=== PATIENT | female | born 1990 | race Caucasian/White ===

== ENCOUNTER → 2017-08-16 | Outpatient (CLI) | payer BC ==
[~2017-08-16] MED LIST: ALB0.5 INH; CYCL-332 PO; ETHI1TAB26 PO; MINOCY50PT PO; NOR5/325 PO; ONDA4TAB PO; PROAIRPT IH; ZOLM2.5 PO; [UNRECOGNIZED DRUG - OTHER]
== END ==
LOC: LAB 08:10
PROVIDERS: ATTEND Internal Medicine
DX: R53.83 Other fatigue (principal); R63.5 Abnormal weight gain
CPT/HCPCS: 36415; 82627; 83001; 83002; 84402; 84403

== ENCOUNTER → 2017-09-10 | Outpatient (CLI) | payer BC | LOC: LAB 13:17 | PROVIDERS: ATTEND Internal Medicine | DX: R53.83 Other fatigue (principal); R63.5 Abnormal weight gain | CPT/HCPCS: 82533 ==

== ENCOUNTER → 2017-09-18 | Outpatient (REF) | payer BC | LOC: ZZSENDIN 13:54 | PROVIDERS: ATTEND Internal Medicine | DX: R63.5 Abnormal weight gain (principal); R53.83 Other fatigue ==

== ENCOUNTER → 2018-01-10 | Outpatient (CLI) | payer BC ==
--- NOTE | 2018-01-10 09:08 | RADIOLOGY IMAGING REPORT ---
[place] [facility] [place] NAME: Darcie Pizarro : 1990 MR: [id number] V: [id number] EXAM DATE: ORDERING PHYSICIAN: MARYLU OLIVIER TECHNOLOGIST: Location: [facility] Patient: Darcie Pizarro : 1990 Visit/Account:[id number] Date of Sevice: 01/10/2018 Technique: CERVICAL SPINE MIN 4 VIEW HISTORY: Neck and back pain Comparison studies: None FINDINGS: There is no acute fracture. The neural foramen are patent without evidence of stenosis. T he vertebral body heights, alignment and intervertebral disc spaces are maintained in neutral, flexio n and extension. Soft tissues are unremarkable. IMPRESSION: 1. Unremarkable cervical spine radiographs Report Dictated By: Bob Hernández DO at 01/10/2018 9:04 AM Report E-Signed By: Bob Hernández DO at 01/10/2018 9:05 AM WSN:[email or web address]
== END ==
LOC: RAD 08:30
PROVIDERS: ATTEND Chiropractor
DX: M54.2 Cervicalgia (principal)
CPT/HCPCS: 72050

== ENCOUNTER → 2018-03-25 | Outpatient (CLI) | payer BC ==
[~2018-03-25] MED LIST changes: +DICL25CA6 PO; +FRO2.5PT PO; +ONDA-2 PO; +TRAM-420 PO; +[UNRECOGNIZED DRUG - CODE] PO
[2018-03-25 10:20] LABS: PLATELET COUNT, AUTOMATED 201 K/uL (150-450)
== END ==
LOC: LAB 09:55
PROVIDERS: ATTEND Obstetrics & Gynecology
DX: Z34.01 Encounter for supervision of normal first pregnancy, first trimester (principal); R82.79 Other abnormal findings on microbiological examination of urine
CPT/HCPCS: 36415; 81001; 85025; 86592; 86703; 86762; 86850; 86900; 86901; 87088; 87340

== ENCOUNTER → 2018-04-01 | Outpatient (CLI) | payer BC | LOC: LAB 11:43 | PROVIDERS: ATTEND Student in an Organized Health Care Education/Training Program | DX: Z34.91 Encounter for supervision of normal pregnancy, unspecified, first trimester (principal) | CPT/HCPCS: 87491; 87591 ==

== ENCOUNTER → 2018-06-27 | Outpatient (CLI) | payer BC ==
[~2018-06-27] MED LIST changes: +BUTA1TAB14 PO; +FLU60VIA41 IM; +FLUT16SP19 NS; +ZOLM5SPR NS
--- NOTE | 2018-06-27 14:57 | RADIOLOGY IMAGING REPORT ---
FACILITY: [facility] PATIENT NAME: Darcie Pizarro : 1990 MR: [id number] V: [id number] EXAM DATE: ORDERING PHYSICIAN: ANDREW MELARA TECHNOLOGIST: Location: [facility] Patient: Darcie Pizarro : 1990 Visit/Account:[id number] Date of Sevice: 06/27/2018 EXAMINATION: Transabdominal OB Ultrasound >14 wks with Anatomic Survey 06/27/2018 8:10 AM History: Anatomical survey COMPARISON: None FINDINGS: Intrauterine gestations: one presentation: Variable, ended transverse with head to maternal right heart rate: 147 bpm Amniotic fluid index: 16.3 cm Largest amniotic fluid pocket 4.6 cm Placenta: Fundal without previa. Placental cord insertion is not well-defined. Uterus: gravid, otherwise normal Maternal adnexa: negative Cervix: Closed and measured at 4.1 cm transvaginally. Gestational Parameters: BPD: 4.9 cm 20 weeks 5 days HC: 18.0 cm 20 weeks 3 days AC: 16.5 cm 21 weeks 4 days FL: 3.5 cm 21 weeks 0 days Average ultrasound age (AUA): 21 weeks 0 days Estimated gestational age by LMP: 20 weeks 4 days Estimated weight (EFW): 101 grams +/- 59 grams EFW for LMP percentile: 75 Anatomic Survey: Intracranial structures, nose and lips, 4-chamber heart, stomach, kidneys, urinary bladder, spine, 3- vessel cord and cord insertion are unremarkable. Two upper and two lower extremities visualized. The palate and the cardiac outflow tracts were not well seen. IMPRESSION: 1. Single live intrauterine gestation; estimated ultrasound age 21 weeks 0 days ([facility]MA 10/30/2017) which is 3 days ahead of expected clinical dates, well within normal range. 2. Unremarkable anatomic survey. Palate and outflow tracts were not well seen, nor was the herson cental cord insertion well documented. The patient is scheduled to return for addendum imaging. Report Dictated By: Juan Thayer MD at 06/27/2018 2:48 PM Report E-Signed By: Juan Thayer MD at 06/27/2018 2:52 PM WSN:[email or web address]
== END ==
LOC: RAD 08:02
PROVIDERS: ATTEND Obstetrics & Gynecology
DX: Z34.02 Encounter for supervision of normal first pregnancy, second trimester (principal); Z3A.21 21 weeks gestation of pregnancy

== ENCOUNTER → 2018-06-27 | Outpatient (CLI) | payer BC | LOC: LAB 10:34 | PROVIDERS: ATTEND Obstetrics & Gynecology | DX: R30.0 Dysuria (principal); R82.79 Other abnormal findings on microbiological examination of urine | CPT/HCPCS: 87088 ==

== ENCOUNTER → 2018-07-08 | Outpatient (CLI) | payer BC ==
--- NOTE | 2018-07-08 11:26 | RADIOLOGY IMAGING REPORT ---
FACILITY: [facility] - [place] PATIENT NAME: Darcie Pizarro : 1990 MR: [id number] V: [id number] EXAM DATE: [id number] ORDERING PHYSICIAN: ANDREW MELARA TECHNOLOGIST: Location: [facility] Patient: Darcie Pizarro : 1990 Visit/Account:[id number] Date of Sevice: 07/08/2018 Exam type: Limited OB ultrasound History: Follow-up cardiac imaging Comparison: June 26, 2018. Findings: heart rate was 147 bpm. Four cardiac chambers were demonstrated. The right and left ventricul ar outflow tracts appeared unremarkable as imaged IMPRESSION: 1. As above Report Dictated By: Danae Cornell MD at 07/08/2018 11:17 AM Report E-Signed By: Danae Cornell MD at 07/08/2018 11:20 AM WSN:[email or web address]
== END ==
LOC: RAD 08:45
PROVIDERS: ATTEND Obstetrics & Gynecology
DX: Z02.9 Encounter for administrative examinations, unspecified (principal)

== ENCOUNTER → 2018-08-20 | Outpatient (CLI) | payer BC ==
[2018-08-20 09:58] LABS: PLATELET COUNT, AUTOMATED 153 K/uL (150-450)
== END ==
LOC: LAB 08:08
PROVIDERS: ATTEND Advanced Practice Midwife
DX: Z34.03 Encounter for supervision of normal first pregnancy, third trimester (principal); Z3A.28 28 weeks gestation of pregnancy
CPT/HCPCS: 36415; 82950; 85025

== ENCOUNTER → 2018-08-26 | Outpatient (CLI) | payer BC | LOC: LAB 11:34 | PROVIDERS: ATTEND Advanced Practice Midwife | DX: R10.9 Unspecified abdominal pain (principal); R82.79 Other abnormal findings on microbiological examination of urine | CPT/HCPCS: 87088 ==

== ENCOUNTER → 2018-09-06 | Outpatient (CLI) | payer BC ==
[~2018-09-06] MED LIST changes: +DIPH0.5D12 IM
[2018-09-06 16:24] LABS: PLATELET COUNT, AUTOMATED 155 K/uL (150-450)
== END ==
LOC: LAB 15:54
PROVIDERS: ATTEND Advanced Practice Midwife
DX: O13.9 Gestational [pregnancy-induced] hypertension without significant proteinuria, unspecified trimester (principal)
CPT/HCPCS: 36415; 82040; 82247; 82310; 82374; 82435; 82565; 82570; 82947; 84075; 84132; 84155; 84156; 84295; 84450; 84460; 84520; 85025

== ENCOUNTER → 2018-09-16 | Outpatient (CLI) | payer BC ==
--- NOTE | 2018-09-16 10:12 | RADIOLOGY IMAGING REPORT ---
FACILITY: [facility] PATIENT NAME: Darcie Pizarro : 1990 MR: [id number] V: [id number] EXAM DATE: ORDERING PHYSICIAN: MOLLY HANEY TECHNOLOGIST: Location: [facility] Patient: Darcie Pizarro : 1990 Visit/Account:[id number] Date of Sevice: 09/16/2018 [facility] [place] OB LIIMITED HISTORY: Gestational hypertension COMPARISON: July 08, 2018 and June 27, 2018 TECHNIQUE: Transabdominal imaging was performed for assessment of the fetus and maternal pelvic s tructures. Transvaginal imaging was not performed. FINDINGS: Intrauterine gestations: One. presentation: Cephalic. heart rate: 136 bpm. Amniotic fluid volume: ; STEPHEN 20.26 cm; MVP 6.7 cm. Placenta: Fundal and anterior. Uterus: Gravid, otherwise grossly unremarkable where visualized. Maternal adnexa/ovaries: Not imaged. Cervix: Not imaged. Gestational Parameters: BPD: 8.62 cm, 97th percentile HC: 30.21 cm, 51st percentile AC: 28.01 cm, 46th percentile FL: 6.36 cm, 58th percentile Average ultrasound age (AUA): 33 weeks/ three days Estimated age based on LMP: 32 weeks/ one days Estimated weight (EFW): 2027 grams +/- 296 grams, 57th percentile The umbilical cord SD ratios are 3.4, 3.1, 4.7 Anatomic Survey: Anatomic survey was not performed. IMPRESSION: Single viable fetus in cephalic presentation with an estimated gestational age of 33 weeks and three days. Estimated gestational age by LMP is 32 weeks one day Estimated weight 2027 g which is at the 57th percentile Report Dictated By: Danae Cornell MD at 09/16/2018 9:48 AM Report E-Signed By: Danae Cornell MD at 09/16/2018 10:08 AM WSN:[email or web address]
== END ==
LOC: RAD 08:04
PROVIDERS: ATTEND Obstetrics & Gynecology
DX: Z02.9 Encounter for administrative examinations, unspecified (principal)

== ENCOUNTER → 2018-09-17 | Outpatient (CLI) | payer BC | LOC: LAB 16:52 | PROVIDERS: ATTEND Obstetrics & Gynecology | DX: O13.3 Gestational [pregnancy-induced] hypertension without significant proteinuria, third trimester (principal) | CPT/HCPCS: 36415; 82040; 82247; 82310; 82374; 82435; 82565; 82947; 84075; 84132; 84155; 84295; 84450; 84460; 84520; 85027 ==

== ENCOUNTER → 2018-09-24 | Outpatient (CLI) | payer BC | LOC: LAB 08:13 | PROVIDERS: ATTEND Advanced Practice Midwife | DX: O13.9 Gestational [pregnancy-induced] hypertension without significant proteinuria, unspecified trimester (principal) | CPT/HCPCS: 36415; 82040; 82247; 82310; 82374; 82435; 82565; 82947; 84075; 84132; 84155; 84295; 84450; 84460; 84520; 85027 ==

== ENCOUNTER → 2018-09-27 | Outpatient (CLI) | payer BC | LOC: LAB 09:36 | PROVIDERS: ATTEND Obstetrics & Gynecology | DX: O13.9 Gestational [pregnancy-induced] hypertension without significant proteinuria, unspecified trimester (principal) | CPT/HCPCS: 82570; 84156 ==

== ENCOUNTER → 2018-10-01 | Outpatient (CLI) | payer BC | LOC: LAB 16:39 | PROVIDERS: ATTEND Advanced Practice Midwife | DX: O14.90 Unspecified pre-eclampsia, unspecified trimester (principal) | CPT/HCPCS: 36415; 82040; 82247; 82310; 82374; 82435; 82565; 82947; 84075; 84132; 84155; 84295; 84450; 84460; 84520; 85027 ==

== ENCOUNTER → 2018-10-02 | Outpatient (CLI) | payer BC | LOC: LAB 08:12 | PROVIDERS: ATTEND Obstetrics & Gynecology | DX: Z36.85 Encounter for antenatal screening for Streptococcus B (principal) | CPT/HCPCS: 87081 ==

== ENCOUNTER → 2018-10-08 | Outpatient (CLI) | payer BC | LOC: LAB 07:58 | PROVIDERS: ATTEND Advanced Practice Midwife | DX: O14.90 Unspecified pre-eclampsia, unspecified trimester (principal) | CPT/HCPCS: 36415; 82040; 82247; 82310; 82374; 82435; 82565; 82947; 84075; 84132; 84155; 84295; 84450; 84460; 84520; 85027 ==

== ENCOUNTER → 2018-10-14 | Outpatient (CLI) | payer BC ==
[~2018-10-14] MED LIST changes: +BET6I IM ONLY
--- NOTE | 2018-10-14 12:28 | RADIOLOGY IMAGING REPORT ---
FACILITY: [facility] [place] PATIENT NAME: Darcie Pizarro : 1990 MR: [id number] V: [id number] EXAM DATE: ORDERING PHYSICIAN: MOLLY HANEY TECHNOLOGIST: [place] [facility] [place]ie Pizarro : 1990 Visit/Account:[id number] Date of Sevice: 10/14/2018 [facility] [place] OB LIIMITED HISTORY: Gestational hypertension COMPARISON: September 16, 2018 TECHNIQUE: Transabdominal imaging was performed for assessment of the fetus and maternal pelvic s tructures. Transvaginal imaging was not performed. FINDINGS: Intrauterine gestations: One. presentation: Cephalic. heart rate: 139 bpm. Amniotic fluid volume: Normal; STEPHEN 13.81 cm; MVP 5.09 cm. Placenta: Posterior. Uterus: Not evaluated. Maternal adnexa/ovaries: Not evaluated. Cervix: Not evaluated. Gestational Parameters: BPD: 9.3 cm, 89th percentile HC: 33 cm, 46th percentile AC: 32.83 cm, 67th percentile FL: 7.18 cm, 53rd percentile Average ultrasound age (AUA): 37 weeks/ two days Estimated age based on LMP: 36 weeks/ four days Estimated weight (EFW): 3080 grams +/- 450 grams consistent with the 65th percentile Anatomic Survey: Anatomic survey not performed. IMPRESSION: Single viable fetus in cephalic presentation with an estimated gestational age by measurements of 37 weeks and two days. Estimated gestational age by LMP is 36 weeks and four days Estimated weight is 3080 g consistent with the 65th percentile Report Dictated By: Danae Cornell MD at 10/14/2018 11:56 AM Report E-Signed By: Danae Cornell MD at 10/14/2018 12:23 PM WSN:[email or web address]
== END ==
LOC: US 08:04
PROVIDERS: ATTEND Obstetrics & Gynecology
DX: Z02.9 Encounter for administrative examinations, unspecified (principal)

== ENCOUNTER → 2018-10-15 | Outpatient (CLI) | payer BC | LOC: LAB 08:53 | PROVIDERS: ATTEND Obstetrics & Gynecology | DX: O14.05 Mild to moderate pre-eclampsia, complicating the puerperium (principal) | CPT/HCPCS: 36415; 82040; 82247; 82310; 82374; 82435; 82565; 82947; 84075; 84132; 84155; 84295; 84450; 84460; 84520; 85027 ==

== ENCOUNTER 2018-10-18 10:29 | Inpatient (IN) | payer BC ==
[~2018-10-18] VITALS: Ht 154.9 cm; Wt 78.9 kg
[~2018-10-18 10:29] MED LIST changes: -OXYC-865 PO; -PREN-127 PO
[2018-10-18] MEDS ORDERED: OXYTOCIN 30 UNIT/D5LR 500 ML 500 ML IV PRN ×2 (11:44)
[2018-10-18] MEDS ORDERED: FAMOTIDINE(*) 20MG/50ML PREMIX 50 ML IVPB PRN ×2 (11:44→18:05)
[2018-10-18] MEDS ORDERED: fentaNYL CITR 100 MCG/2 ML AMP IVP PRN (11:45)
[2018-10-18] MEDS ORDERED: TERBUTALINE SULF 1 MG/ML VIAL SUBQ PRN (11:45)
[2018-10-18] MEDS ORDERED: MISOPROSTOL 25 MCG CAP PV PRN (11:45)
[2018-10-18] MEDS ORDERED: LIDOCAINE 1% LOCAL 300 MG/30ML INJ PRN (11:45)
[2018-10-18] MEDS ORDERED: FLUSH 10 ML SYR IVP PRN (11:45)
[2018-10-18] MEDS ORDERED: METOCLOPRAMIDE 10 MG/2 ML SDV IVP PRN (11:45)
[2018-10-18] MEDS ORDERED: ONDANSETRON 4 MG/2 ML VIAL IVP PRN (11:45)
[2018-10-18] MEDS ORDERED: LIDOCAINE/SOD BICARB 8.4% SYR SC PRN (11:45)
[2018-10-18] MEDS ORDERED: DINOPROSTONE 10 MG INSERT PV ONE (11:45)
[2018-10-18] MEDS ORDERED: BUPIVACAINE 0.5% INJ 30ML VIAL EPI PRN ×2 (11:55→22:10)
[2018-10-18] MEDS ORDERED: LIDO/EPI 2% MPF 1:200,000 20ML EPI PRN ×2 (11:55→22:10)
[2018-10-18] MEDS ORDERED: BUPIVACAINE 0.25% MPF INJ EPI PRN ×2 (11:55→22:10)
[2018-10-18] MEDS ORDERED: LIDOCAINE/PF 2% 200MG/10ML AMP 200 MG/10 ML AMPUL EPI PRN ×2 (11:55→22:10)
[2018-10-18] MEDS ORDERED: FENTANYL/ROPIVACAINE 100 ML BAG EPI PRN ×2 (11:55→22:10)
[2018-10-18] MEDS ORDERED: fentaNYL CITR 100 MCG/2 ML AMP IT PRN ×2 (11:55→22:10)
[2018-10-18 12:25] LABS: PLATELET COUNT, AUTOMATED 116 K/uL (150-450)
[2018-10-18 13:40] VITALS: BP 127/80; Ht 154.9 cm; Wt 78.9 kg
[2018-10-18] MEDS ORDERED: PREN-127 PO (13:45)
[2018-10-18] MEDS: LR(*) 1000 ML BAG 1,000 ML IV PRN ×2 (17:46→22:25)
[2018-10-18] MEDS ORDERED: LABETALOL HCL 20 MG/4 ML SYR IVP PRN (18:00)
[2018-10-18] MEDS ORDERED: CALCIUM CARBONATE 500 MG CHEW PO PRN (18:05)
[2018-10-18] MEDS ORDERED: ACETAMINOPHEN 500 MG TAB PO PRN (18:05)
--- NOTE | 2018-10-18 18:12 | History & Physical ---
History of Present Illness Age of Patient: 28 : 1 Para or TPAL: 0 EDC per LMP: Nov 10, 2018 Estimated Gestational Age: 36.5 Chief Complaint BPP in office 01/20. Preeclampsia. History of Present Illness Pt is a 28 y/o @ 36-5/7 wga by lmp c/w 8 week sono who presented to clinic this morning for ANFS and underwent an NST. NST was deemed non reactive, pt then underwent a BPP that was 6/8 for movement. Pt gets a combined score of 6/10. She was counseled by Dr. Bah that this could indicate early stress. Pt was advised that we should move forward with IOL secondary to the 01/20. Pt was being monitored for Pre-Eclampsia. Denies any headaches or visual changes. Good movement. No vaginal bleeding. History Patient's Blood Type: AB Positive Rubella Status: Immune Group B Strep Screen: Negative Obstetrical History: @ 36-5/7 wga Preeclampsia diagnosed at 33 weeks by BP and Pr:CR of 0.5. Did receive betamethasone on 10/14 and 10/15 for FLM. [id number] negative c/w female Past Medical History: Migraines. Managed with Zomig. Allergies: Coded Allergies: azithromycin (Verified Allergy, Intermediate, HIVES, 01/22/18) VERIFIED 01/22/18 Family History: FH: thyroid condition FH: type 1 diabetes aunt uncle brother Med Rec Home Meds Active Scripts Fluticasone Prop 50 Mcg Ns (FLONASE 50 MCG NS) 16 Gm [place].susp, 2 SPRAYS NS QDAY, #1 BOT 3 Refills Prov:ANDREW BAH MD 09/27/18 Butalb/Acetaminophen/Caff 50-325-40 Mg (FIORICET 50-325-40) 1 Each Tablet, 1-2 TAB PO Q6H PRN for headache, #10 TAB 1 Refill Prov:ANDREW BAH MD 09/27/18 Zolmitriptan (ZOMIG) 5 Mg [place], 5 MG NS ONCE, #1 BOT 1 Refill 1 actuation in one nostril x 1, may repeat x 1 after 2 hours, do not exceed 10mg in 24hrs. Prov:ANDREW BAH MD 04/30/18 Reported Medications Vits W-Ca,Fe,Fa(<1MG) ( VITAMINS) 1 Each Tablet, 1 EACH PO DAILY, TAB 10/18/18 Discontinued Reported Medications Ondansetron Hcl (ONDANSETRON HCL) 4 Mg Tablet, 1 TAB PO Q12H PRN for MIGRAINE, TAB 01/22/18 Zolmitriptan (ZOLMITRIPTAN) 2.5 Mg Tablet, 1 TAB PO PRN PRN for MIGRAINE 01/22/18 Review of Systems All Systems Reviewed/Normal: Yes, Except as Noted Constitutional: No Fever, No Weight Loss, No Weight Gain, No Chills, No Night Sweats, No Other Neurological: No Syncope, No Confusion, No Weakness, No Dizziness, No Slurred Speech, No Other Eyes: No Vision Change, No Loss of Vision, No Photophobia, No Other ENT: No Hearing Loss, No Sinus Congestion, No Sore Throat, No Ear Ache, No Tinnitus, No Other Cardiovascular: No Chest Pain, No Palpitations, No Orthostatic Hypotension, No Other Respiratory: No Shortness of Breath, No Cough, No Wheezing, No Other Gastrointestinal: No Nausea, No Vomiting, No Diarrhea, No Dysphagia, No Constipation, No Early Satiety, No Hematemesis, No Hematochezia, No Melena, No Abdominal Pain, No Other Genitourinary: No Dysuria, No Hematuria, No Urinary Incontinence, No Other Musculoskeletal: No Pain, No Sprain, No Strain, No Impaired Mobility, No Other Psychiatric: No Depression, No Anxiety, No Other Exam General Exam Vital Signs Vital Signs Date Time Temp Pulse Resp B/P (MAP) Pulse Ox O2 Delivery O2 Flow Rate FiO2 10/18/18 13:40 97.7 77 18 127/80 (96) 92 Room Air General Apperance: Alert/Awake/No Acute Distress Neuro: No Gross deficits Eyes: Normal Extraocular Movement & Vison ENT: Normal Cardiovascular: Regular Rate and Rhythm Respiratory: No Respiratory Distress, Clear to Auscultation Abdomen: Soft, Non-Tender, Non-Distended, Gravid - Non-Tender : Normal Musculoskeletal: No Weakness/Pain Extremities: No Cyanosis,Clubbing or Edema Integumentary: Skin Intact without Lesions or Rash Psychological: Alert & Oriented X3, Appropriate Mood & Affect Cervical Dialation: 1 Cervical Effacement (%): 50 Cervical Consistency: Soft Cervical Position: Mid Station: -2 Presentation: Vertex Uterine Contractions(Q min): 4 Uterine Contraction Strength: Moderate UC Resting Tone: Soft Fetus Feeling Movement?: Yes Heart Tones: 140 Heart Tone Variabilty: Moderate FHT Accelerations: 15X15 FHT Decelerations: None FHT Category: I Medical Decision Making Data Points Result Diagram: 10/18/18 1214 10/18/18 1214 Pre-Admit Course Medical Record Review: Yes VTE Prophylasis: Adult Deep Vein Thrombosis/Pulmonary: No 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 Pt also has the diagnosis of Pre-Eclampsia with out severe features. No severe range BP's while in the hospital today. Will treat BP if necessary. If BP is treated will need to start magnesium sulfate for seizure prophylaxis. Pt is s/p Cytotec 25 mcg with minimal cervical change. Pt is marian regularly. Cervical ripening balloon (Cook's) placed with 80 cc of saline in vaginal and Uterine balloons. Pt to have oxytocin titrated to 14 mU/min, starting at 2 mU/min and increasing by 2 every 20 minutes. Tension applied to balloon hourly. Plan amniotomy once CRB is removed. (2) Pre-eclampsia affecting , antepartum VIK PIÑA DO Oct 18, 2018 18:12
[2018-10-18] MEDS ORDERED: ePHEDrine 25 MG/5 ML DISP.SYR IVP ONE (22:09)
[2018-10-18] MEDS ORDERED: ONDANSETRON 4 MG/2 ML VIAL ONE (22:10)
--- NOTE | 2018-10-18 22:18 | Labor Progress Note ---
Labor Subjective Progress Notes Subjective Beginning to get uncomfortable with contractions. Pt desires to get epidural with ROM. Feeling Movement?: Yes Labor Pain: Moderate Neurological: No Headache, No Other Eyes: No Visual Disturbances Labor Objective Vital Signs Vital Signs Date Time Temp Pulse Resp B/P (MAP) Pulse Ox O2 Delivery O2 Flow Rate FiO2 10/18/18 13:40 97.7 77 18 127/80 (96) 92 Room Air Vaginal Discharge/Fluid?: Clear Fluid (with amniotomy) Cervical Dialation: 4 Cervical Effacement (%): 75 Cervical Consistency: Soft Cervical Position: Mid Station: -2 Presentation: Vertex Uterine Contractions(Q min): 3 Uterine Contraction Strength: Moderate UC Resting Tone: Soft Other Result Diagram: 10/18/18 1214 10/18/18 1214 Assessment and Plan 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 Pt did have HR deceleration lasting approximately 3 minutes. FSE was placed and amniotomy performed with FHR back to baseline with placement. Pt to get epidural. No severe range blood pressures at this time. Continue to monitor patient. VIK PIÑA DO Oct 18, 2018 22:18
--- NOTE | 2018-10-18 22:58 | Anesthesia OB Pre-Anes Eval ---
History of Present Illness Anesthesia Start Date: Oct 18, 2018 Anesthesia Start Time: 22:10 OB Anesthesia Diagnosis: induction - medical EDC: Nov 10, 2018 : 1 Para: 0 Vital Signs: Vital Signs 10/18/18 13:40 Temp 97.7 Pulse 77 Resp 18 B/P (MAP) 127/80 (96) Pulse Ox 92 O2 Delivery Room Air Pain Ratin Heart Tones: 131 Result Diagram: 10/18/18 1214 10/18/18 1214 Height (Inches): 61.00 Weight (Pounds): 174 BMI (kg/m2): 32.90 Past Medical History Medical History: no pertinent history Surgical History: no surgical history Attended Childbirth Classes?: No Hx Anesthesia Reactions: No Hx Family Anesthesia Reaction: No Current Medications: pitocin Home Meds Active Scripts Fluticasone Prop 50 Mcg Ns (FLONASE 50 MCG NS) 16 Gm [place].susp, 2 SPRAYS NS QDAY, #1 BOT 3 Refills Prov:ANDREW MELARA MD 09/27/18 Butalb/Acetaminophen/Caff 50-325-40 Mg (FIORICET 50-325-40) 1 Each Tablet, 1-2 TAB PO Q6H PRN for headache, #10 TAB 1 Refill Prov:ANDREW MELARA MD 09/27/18 Zolmitriptan (ZOMIG) 5 Mg [place], 5 MG NS ONCE, #1 BOT 1 Refill 1 actuation in one nostril x 1, may repeat x 1 after 2 hours, do not exceed 10mg in 24hrs. Prov:ANDREW MELARA MD 04/30/18 Reported Medications Vits W-Ca,Fe,Fa(<1MG) ( VITAMINS) 1 Each Tablet, 1 EACH PO DAILY, TAB 10/18/18 Discontinued Reported Medications Ondansetron Hcl (ONDANSETRON HCL) 4 Mg Tablet, 1 TAB PO Q12H PRN for MIGRAINE, TAB 01/22/18 Zolmitriptan (ZOLMITRIPTAN) 2.5 Mg Tablet, 1 TAB PO PRN PRN for MIGRAINE 01/22/18 Allergies: Coded Allergies: azithromycin (Verified Allergy, Intermediate, HIVES, 01/22/18) VERIFIED 01/22/18 Anesthesia OB ROS Neurological: migraines/headaches ENT: Denies Tooth caps, Denies Loose teeth, Denies Chipped teeth, Denies Dentures, Denies Bridges, Denies Retainers, Denies Veneers, Denies Implants, Denies Tongue ring, Denies Other Pulmonary: No asthma, No smoker (pks/day/yrs), No other Airway Class: ll Cardiovascular ROS: No edema, No arrhythmia, No other GI ROS: clear liquids Last Solids Date: Oct 18, 2018 Last Solids Time: 07:30 ROS: No Herpes, No STD(s), No Liver Disease, No Renal Disease, No Other Endocrine ROS: No diabetes, No gestational diabetes, No thyroid disorder, No other Musculoskeletal ROS: No low back pain, No low back injury, No scoliosis, No other ASA Classification: 2 Assessment and Plan Anesthesia Plan: DENNY PATTERSON CRNA Oct 18, 2018 22:58
--- NOTE | 2018-10-18 23:03 | Procedure Note ---
Anesthetic Placement Note Anesthesia Plan: CSE Permit for Anesthesia Signed: Yes Anesthesia Technique: Patient Sitting Anesthesia Prep: Chlorhexidine Interspace: L 3-4 Local Anesthetic: 1% Lidocaine Amount Local - cc's: 3 Anesthesia Needle: 17g Touhy/Schliff Anesthesia Attempts: 1 Loss of Resistance: Normal Saline Depth of BROOKE (cm): 5 Epidural Needle Placement: No CSF, No Blood, No Parasthesia Intrathecal Needle: 27 Gauge Pencan Cerebral Spinal Fluid: Yes, Clear Catheter Insertion (cm): 4 (9 cm@skin) Catheter Type: Stallings - Spring Wound Epidural Dressing: Tegaderm, Tape Anesthesia Tray: Lot Number ([id number]), Expiration Date (04/01), Reference Number ([id number]) Anesthesia Medications: Intrathecal Dose: mcg Fentanyl (10), mg Marcaine MPF (2.5), Time (2228) Epidural Test Dose: 1.5 Lido/Epi (1:200,000), Dose - mL (3), Time (2229), Negative Epidural Infusion: 0.2% Ropivicaine, With Fentanyl 2mcg/ml, Start Time: (2243) Epidural Pump Setting: Bolus Dose - mL (8), Lockout - Minutes (20), Maintenance Rate - mL/hr (6), Maximum per Hour - mL (30) Complications: None DENNY GARCIA CRNA Oct 18, 2018 23:03
[2018-10-19] VITALS (9 sets, daily range): BP systolic 100–129; BP diastolic 65–83
[2018-10-19] MEDS ORDERED: ACETA/BUTAL/CAFF 325/50/40 TAB PO PRN ×2 (02:15→02:20)
[2018-10-19] MEDS: LR(*) 1000 ML BAG 1,000 ML IV PRN ×2 (03:02→06:10)
[2018-10-19] MEDS ORDERED: ACETA/BUTAL/CAFF 325/50/40 TAB PO ONE (04:45)
--- NOTE | 2018-10-19 07:23 | Labor Progress Note ---
Labor Subjective Progress Notes Subjective Doing good this morning. Reports feeling increased pressure. "Epidural is still doing its job though." Feeling Movement?: Yes Vaginal Discharge/Fluid: Bloody Show, Clear Fluid Labor Pain: Mild Neurological: No Headache, No Other Eyes: No Visual Disturbances Labor Objective Vital Signs Vital Signs Date Time Temp Pulse Resp B/P (MAP) Pulse Ox O2 Delivery O2 Flow Rate FiO2 10/18/18 13:40 97.7 77 18 127/80 (96) 92 Room Air Vaginal Discharge/Fluid?: Bloody Show Cervical Dialation: 9.5 Cervical Effacement (%): 100 Cervical Consistency: Soft Cervical Position: Anterior Station: 0 Presentation: Vertex Uterine Contractions(Q min): 3 Uterine Contraction Strength: Moderate UC Resting Tone: Soft Fetus Heart Tones: 135 Heart Tone Variabilty: Moderate FHT Accelerations: 15X15 FHT Category: II Other Result Diagram: 10/18/18 1214 10/18/18 1214 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 The roman catheter bulb was between the pubic bone and baby's head. This was reduced to allow for further descent of the baby's head. Will sit the patient up and start pushing with in the hour. Did discuss operative vaginal delivery with the patient and her secondary to the baby having significant decelerations with prolonged laying or odd posi tions. They are agreeable to Vacuum if needed to expedite the delivery process. Understand risks to include more significant maternal laceration secondary to increase rate of descent. risk to include scalp bruising or hematoma or scabbing at the site of vacuum. Cephalohematoma is also a risk for baby. Both patient and are agreeable. VIK PIÑA DO Oct 19, 2018 07:23
--- NOTE | 2018-10-19 07:29 | Anesthesia Progress Note ---
Progress/Maintenance Anesthesia Note Date: Oct 19, 2018 Anesthesia Note Time: 02:00 Pain Intensity: 0 Pump: On Pump Rate (ML/HR): 6 Motor Level: Bending Knees-Bilateral Dilatation: 5 Position: Left DENNY GARCIA CRNA Oct 19, 2018 07:29
--- NOTE | 2018-10-19 07:31 | Anesthesia Progress Note ---
Progress/Maintenance Anesthesia Note Date: Oct 19, 2018 Anesthesia Note Time: 07:15 Pain Intensity: 7 Pump: On Pump Rate (ML/HR): 6 Sensory Level: rectal pressure Motor Level: Bending Knees-Bilateral Dilatation: 9 Position: Left, Semi-Fowlers Drug Bolus: 0.2% Ropivicaine, Fentanyl 2mcg/ml Anesthesia Treatment: pushed bolus button for her YUKOERDENNY CRNA Oct 19, 2018 07:31
--- NOTE | 2018-10-19 08:38 | Anesthesia Progress Note ---
Progress/Maintenance Anesthesia Note Date: Oct 19, 2018 Anesthesia Note Time: 08:35 Pain Intensity: 3 Pump: On Pump Rate (ML/HR): 6 Motor Level: Bending Knees-Bilateral Dilatation: 10 Drug Bolus: Other (Fent 90 mcg per epidural) DENNY GARCIA CRNA Oct 19, 2018 08:38
[2018-10-19] MEDS ORDERED: LIDO/EPI 2% MPF 1:200,000 20ML ONE (09:12)
[2018-10-19] MEDS ORDERED: OXYTOCIN 10 UNIT/ML SDV ONE (09:12)
[2018-10-19] MEDS ORDERED: CITRIC ACID/SOD CIT 15 ML UDC ONE (09:15)
[2018-10-19] MEDS ORDERED: MORPHINE PF 5 MG/10 ML AMP ONE (09:22)
--- NOTE | 2018-10-19 10:42 | NUR ---
1042 PATIENT WAS MOVED INTO THE PACU VIA THE BED. THE EPIDURAL WAS REMOVED BY MARY HOFFMANN. SBAR REPORT WAS RECEIVED FROM MARY HOFFMANN. PATIENT IS IN A SUPINE POSITION. SHE DENIES ANY PAIN AT THIS TIME. SHE HAS A INCISION BELOW THE THAT IS COVERED WITH DERMABOND THAT IS DRY AND INTACT. HER SPINAL LEVEL IS AT C5. SHE IS NOT ABLE TO WIGGLE HER TOES YET OR FEEL SENSATION. CAP REFILL IS LESS THAN 3 SECONDS, PULSES ARE NORMAL, TOES ARE WARM AND PINK. PAD WAS CHANGED AND SHE HAS A SMALL AMOUNT BLEEDING ON THE PAD. FUNDUS IS FIRM AND IS 2 BELOW THE UMBILICUS. SMALL AMOUNT OF NON-PITTING EDEMA IN LOWER LEGS. BOWEL SOUNDS ARE HYPERACTIVE. 1045 PATIENT STATED SHE WAS FEELING SLIGHTLY NAUSEA AND MOVING HER. APPLIED O2 AT 1 LITER. 1050 PATIENT STATED HER NAUSEA IS PASSING 1055 FUNDAS REMAINS FIRM AND NO VAGINAL DRAINAGE AT THIS TIME 1200 PATIENT IS CONVERSING WITH AND STATES SHE IS FEELING WELL.
[2018-10-19] MEDS ORDERED: OXYTOCIN 30 UNIT/D5LR 500 ML 500 ML IV PRN (10:56)
[2018-10-19] MEDS ORDERED: LANOLIN OINT 7 GM TUBE TP PRN (11:00)
[2018-10-19] MEDS ORDERED: ZOLPIDEM TARTRATE 5 MG TAB PO PRN (11:00)
[2018-10-19] MEDS ORDERED: ACETAMINOPHEN 325 MG TAB PO PRN (11:00)
[2018-10-19] MEDS ORDERED: PROMETHAZINE 25 MG/ML 1 ML AMP IVP PRN (11:00)
[2018-10-19] MEDS ORDERED: ONDANSETRON 4 MG/2 ML VIAL IV PRN (11:00)
[2018-10-19] MEDS ORDERED: ceFAZolin(*) 2GM/D5W 50ML 50 ML IVPB ONE (11:04)
--- NOTE | 2018-10-19 11:08 | NUR ---
1108 PATIENT SPINAL LEVEL IS AT L5. SHE IS ABLE TO WIGGLE HER TOES
--- NOTE | 2018-10-19 11:13 | Anesthesia Progress Note ---
Progress/Maintenance Anesthesia Note Date: Oct 19, 2018 Anesthesia Note Time: 09:35 Pump: Off (Urgent C/S called by Dr. Song) Report Received From: Sandra Gann CRNA Report Time: 08:50 Care Assumed By: Other (Devonte Juarez CRNA) Assessment and Plan Anesthesia Plan: LEB Assessment Functioning epidural used for c/s. Epidural Catheter Removal: Removed Catheter Intact, Yes, Removed by: (Devonte Juarez CRNA) Removal Date: Oct 19, 2018 Removal Time: 10:46 DEVONTE JUAREZ CRNA Oct 19, 2018 11:13
--- NOTE | 2018-10-19 11:14 | Post Operative Note ---
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 3vc/iP. Tight foot cord. Normal tubes and ovaries bilaterally. Swelling from site of vacuum application. Some skin tearing at site of vacuum application. Procedure(s): 1LTCS Specimen Removed:(Maybe N/A): 0 Complications: 0 known Fluids Fluids: 400 cc LR u/o 75 cc Estimated Blood Loss: 800 Dictated Date OP Note Dictated: Oct 19, 2018 Time OP Note Dictated: 11:14 VIK SONG DO Oct 19, 2018 11:14
--- NOTE | 2018-10-19 11:17 | NUR ---
1115 FUNDUS FIRMS UP ON MASSAGE. PITOCIN WAS INCREASED IN RATE
--- NOTE | 2018-10-19 11:25 | NUR ---
1120 PATIENT IS RESTING WITH HER EYES CLOSED.
--- NOTE | 2018-10-19 11:35 | NUR ---
1135 SBAR REPORT WAS GIVEN TO [place] RIOS. LUNGS ARE CLEAR. SHE REMAINS ON 1 LITERS NASAL CANNULA. BOWEL SOUNDS ARE HYPERACTIVE. HER SPINAL LEVEL IS L5, SHE IS ABLE TO WIGGLE HER TOES, TOES ARE WARM AND PINK, CAP REFILL IS LESS THAN 3 SECONDS. INCISION IS DRY AND INTACT. NO VAGINAL BLEEDING. FUNDUS IS FIRM ON MASSAGE. IT REMAINS AT 2 BELOW UMBILICUS. SEE DISCHARGE ASSESSMENT.
--- NOTE | 2018-10-19 12:19 | OPERATIVE REPORT 1 ---
EVENT DATE: October 19, 2018 SURGEON: Yuri Song DO ANESTHESIA: Epidural. PREOPERATIVE DIAGNOSIS 1. 28-year-old 1, para 0 at 36 and 6/7 weeks gestation. 2. Biophysical profile 6 out of 10. 3. Preeclampsia. 4. Induction of labor. 5. Arrest of descent. 6. Failed vacuum assisted vaginal delivery. POSTOPERATIVE DIAGNOSIS 1. 28-year-old 1, para 0 at 36 and 6/7 weeks gestation. 2. Biophysical profile 6 out of 10. 3. Preeclampsia. 4. Induction of labor. 5. Arrest of descent. 6. Failed vacuum assisted vaginal delivery. 7. Delivered PROCEDURE PERFORMED Primary low transverse section. FINDINGS Live-born female at 10:53 of 10/19/2018 with Apgars of 8 and 9, weighing 2,538 grams, 5 lbs. 9 oz. 3-vessel cord, intact placenta. There was a tight foot cord. Normal tubes and ovaries bilaterally. There was swelling on the infant's head at the sight of the vacuum application. There was also some skin tearing at the sight of the vacuum. There was some swelling noted to be under the vacuum area. ESTIMATED BLOOD LOSS 800 cc. IV FLUIDS 400 cc. Lactated ringers. URINE OUTPUT 75 cc. CONDITION Stable times 2. Mother and to the recovery and then LDRP pending respiratory status. COUNTS Correct for all needs, laps, sponges, and instruments. COMPLICATIONS None known. LABOR SUMMARY The patient is a 28-year-old 1, para 0 who was sent to Labor and Delivery at 36 and 5/7 weeks gestation for a nonreassuring biophysical profile of 6 out of 10. The patient carries a diagnosis of preeclampsia and was receiving surveillance. She did undergo NST that was nonreactive, followed by a biophysical profile that was 6 out of 8, that gives the baby a score of 6 out of 10. Because of that, the patient was counselled that it would be appropriate to proceed with induction of labor. She did receive Cytotec 25 mcg per vagina. She also then underwent cervical ripening balloon placement with oxytocin concurrently. When the balloon was removed, she was 5 cm. There was a significant deceleration, so a scalp electrode was placed to monitor the heart tones. At that point, amniotomy was performed with clear amniotic fluid. The baby recovered shortly thereafter and was continued to be monitored. There were random variable decelerations and an occasional late deceleration that was fixed with maternal position changes. The patient continued to progress with oxytocin. She did eventually get to complete and +2 station. Maternal pushing was undertaken by the nursing staff. With pushing undertaken and the repetitive variable decelerations, because of that, the patient was counselled for a vacuum assisted delivery to expedite the delivery process secondary to heart tones. Understood that risks of Vacuum include skin changes to include discoloration and possible skin tearing. Also possible hematoma under the skin or significant swelling under the skin. Largest risk to include sub-glial hematoma. Vacuum does increase rate of descent which puts mom at risk of increased laceration. With consent obtained, Vacuum was applied, approximately 1 to 2 cm from anterior to the posterior fontanel. The vacuum was placed. With contractions the vacuum was applied going to the green zone on the kiwi vacuum with approximately 500 mmHG. It was difficult to maintain suction. After 3 pop-offs and what felt to be significant swelling over the vacuum sight, I counselled the patient for a delivery as we were still remote from delivery and the 3 pop-offs as well as recurring variable decelerations. The patient consented and we proceeded to the operating room as indicated. DESCRIPTION OF PROCEDURE The patient was taken to the operating room where she was placed in the dorsal spine position. She had her epidural anesthesia re-bolused. Once her anesthesia was adequate, she was then prepped and draped in the usual sterile manner. Skin testing was performed and found to be adequate to the level of the umbilicus. A skin incision was then made with the scalpel. It was carried sharply down a layer to the fascia. Once the fascia was visualized, it was notched bilaterally. The fascial incision was then extended laterally in a curvilinear manner with Molina scissors. The fascia was dissected off the rectus muscles with curved Molina scissors, both superiorly and inferiorly. The rectus muscle was in the midline. The peritoneum was entered bluntly with hemostats. Gentle stretching was performed. The bladder blade was placed. The bladder flap was created with Metzenbaum scissors. The bladder blade was replaced. A low transverse incision was then created on the uterus with a scalpel, all the way down to the layer of the amnion. Once this was visualized, the surgeon's finger was placed through the hysterotomy. The hysterotomy was exchanged in a curvilinear manner. The surgeon's hand was placed inside the hysterotomy. The 's head was grasped where it was brought to the level of the hysterotomy. With fundal pressure, the infant's head delivered in a controlled manner, followed by the anterior shoulders with a gentle downward motion, posterior shoulders with a upward motion, the remainder of the infants body delivered spontaneously. There was a significant tight half-hitch nuchal cord on the 's foot that was reduced by removing any tension off of the cord. A vigorous female was born. The mouth and nose were bulb suctioned. Skin changes over the site of the vacuum to include swelling and significant abrasions. The cord was clamped after a minute and a half post-delivery. The was shown to her mother and then given to awaiting nursing staff to take to the warmer to be vigorously cleaned and dried. Cord blood gas was obtained. The placenta delivered with manual extraction. The uterus was then exteriorized and cleaned of all clot and debris with a dry laparotomy sponge. The angles of the incision were visualized and grasped with Shoemaker forceps. The hysterotomy was closed with a 0 Monocryl in a running manner. Imbrication was used to help with hemostasis with an additional 0 Monocryl. Hysterotomy was inspected and found to be hemostatic. The uterus was then placed back inside the abdomen. The abdomen was cleaned of all clots and debris. The right and left gutter were also cleaned of all clot and debris. Hysterotomy was inspected and noted to be hemostatic. The peritoneum was closed with a 2-0 Monocryl in a running manner. The fascia was closed with a 0 looped PDS in a running manner. The subcutaneous tissue was then irrigated. It was closed with a 3-0 Monocryl in a running manner. The skin was closed with a 4-0 Monocryl in a subcuticular manner. The skin incision then had Dermabond placed over it. The patient was then cleaned and she was transferred to the recovery room in stable condition. QUINTON
[2018-10-19] MEDS: KETOROLAC 30 MG/ML VIAL IVP SCH ×2 (16:16→22:59)
[2018-10-19] MEDS ORDERED: GLYCERIN/WITCH HAZEL LEAF 1 PK TP PRN (20:10)
[2018-10-19] MEDS ORDERED: BENZOCAINE 20% 60 ML BTL TP PRN (20:10)
[2018-10-19] MEDS: DLR(*) 1000 ML BAG 1,000 ML IV PRN (20:21)
[2018-10-19] MEDS: DOCUSATE CALCIUM 240 MG CAP PO SCH (20:21)
[2018-10-19] MEDS: FAMOTIDINE 20 MG TAB PO SCH (20:21)
[2018-10-20] MEDS: DLR(*) 1000 ML BAG 1,000 ML IV PRN (04:01)
[2018-10-20] MEDS: KETOROLAC 30 MG/ML VIAL IVP SCH (04:01)
[2018-10-20 04:04] VITALS: BP 135/89
[2018-10-20 06:32] LABS: PLATELET COUNT, AUTOMATED 78 K/uL (150-450)
[2018-10-20 07:45] VITALS: BP 139/93
[2018-10-20] MEDS: FAMOTIDINE 20 MG TAB PO SCH ×2 (08:52→21:33)
[2018-10-20] MEDS: DOCUSATE CALCIUM 240 MG CAP PO SCH ×2 (08:53→21:33)
[2018-10-20] MEDS: IBUPROFEN 800 MG TAB PO SCH ×2 (10:07→18:27)
--- NOTE | 2018-10-20 11:05 | Anesthesia Post Eval Note ---
Anesthesia Post Eval Note Vital Signs Date Time Temp Pulse Resp B/P (MAP) Pulse Ox O2 Delivery O2 Flow Rate FiO2 10/20/18 07:45 97.2 81 18 139/93 (108) 97 Room Air 10/19/18 20:38 0.5 Pt able to participate in Eval: Yes Cardiovascular Status: Satisfactory Respiratory Status: Satisfactory Pain Managment: Satisfactory PO Nausea/Vomiting: Satisfactory Temperature Management: Satisfactory Mental Status: Satisfactory, Alert, Oriented X3 Post-Op Hydration Status: Satisfactory, Tolerating PO Well, Voiding w/o Difficulty Anesthesia Type: CSE Anesthesia Tolerance: No anesthesia concerns TESS JUAREZ CRNA Oct 20, 2018 11:05
[2018-10-20 13:05] VITALS: BP 143/98
--- NOTE | 2018-10-20 13:30 | OB/GYN Progress Note ---
OB Subjective Progress Notes Subjective Doing good this afternoon. Tolerating regular diet. Ambulatory. Voiding with out any difficulty. GI: NEG Nausea, NEG Vomiting, NEG Flatus, NEG Bowel Movement : Voiding Well Pain: Mild, Comfortable, Tolerating PO Pain Meds Neurological: No Headache, No Other Eyes: No Visual Disturbances OB Objective Physical Exam Vital Signs Date Time Temp Pulse Resp B/P (MAP) Pulse Ox O2 Delivery O2 Flow Rate FiO2 10/20/18 07:45 97.2 81 18 139/93 (108) 97 Room Air 10/19/18 20:38 0.5 Intake and Output 10/20/18 07:00 Intake Total 1904 ml Output Total 200 ml Balance 1704 ml Intake Oral 1020 ml IV Total 884 ml Output Urine Total 200 ml General Appearance: Alert/Awake/No Acute Distress Neurological: No Gross deficits Eyes: Normal Extraocular Movement & Vison Cardiovascular: Normal Rhythm & Peripheral Pulses, Regular Rate and Rhythm Respiratory: No Respiratory Distress, Clear to Auscultation Extremities: No Cyanosis,Clubbing or Edema Integumentary: Skin Intact without Lesions or Rash Psychological: Alert & Oriented X3, Appropriate Mood & Affect Result Diagram: 10/20/18 0608 10/18/18 1214 Assessment and Plan PROCESS PLANNER Assessment: Stable PROCESS PLANNER Plan: Routine Post-Op Care Problems: (1) 36 weeks gestation of Status: Resolved (2) Pre-eclampsia affecting , antepartum Status: Resolved (3) Postcesarean section Assessment & Plan: Doing good this afternoon. Plan to repeat labs this PM. Continue to monitor pain levels and keep patient controlled. VIK PIÑA DO Oct 20, 2018 13:30
[2018-10-20 18:29] VITALS: BP 132/88
[2018-10-20 22:55] VITALS: BP 144/94
[2018-10-20 23:00] VITALS: BP 135/89
[2018-10-20] MEDS ORDERED: ZOLPIDEM TARTRATE 5 MG TAB PO PRN (23:35)
[2018-10-21] MEDS: IBUPROFEN 800 MG TAB PO SCH ×3 (01:50→17:58)
[2018-10-21 05:30] VITALS: BP 156/94
[2018-10-21 05:57] VITALS: BP 144/98
--- NOTE | 2018-10-21 09:13 | OB/GYN Progress Note ---
OB Subjective Progress Notes Subjective Doing good this morning. Reports she is starting to get swelling in her lower extremities that is significantly increasing. Patient denies any headaches or visual changes. Reports that she is pumping without any issues. Lochia appropriate. Pain controlled one patient keeps up on pain medications. Ambulatory from room to nursery. Any without any difficulty. GI: NEG Nausea, NEG Vomiting, NEG Flatus, NEG Bowel Movement : Voiding Well, Vaginal Bleeding, Moderate Pain: Mild Neurological: No Headache, No Other Eyes: No Visual Disturbances OB Objective Physical Exam Vital Signs Date Time Temp Pulse Resp B/P (MAP) Pulse Ox O2 Delivery O2 Flow Rate FiO2 10/21/18 05:57 144/98 (113) 10/20/18 22:55 97.2 85 19 92 10/20/18 18:29 Room Air 10/19/18 20:38 0.5 Intake and Output 10/21/18 07:00 Intake Total 2441 ml Output Total 1525 ml Balance 916 ml Intake Oral 2100 ml IV Total 341 ml Output Urine Total 1525 ml # Voids 1 General Appearance: Alert/Awake/No Acute Distress Neurological: No Gross deficits Eyes: Normal Extraocular Movement & Vison Cardiovascular: Normal Rhythm & Peripheral Pulses, Regular Rate and Rhythm Respiratory: No Respiratory Distress, Clear to Auscultation Incision: Clean, Dry, Intact, Dermabond Extremities: No Cyanosis,Clubbing or Edema Integumentary: Skin Intact without Lesions or Rash Psychological: Alert & Oriented X3, Appropriate Mood & Affect Result Diagram: 10/21/18 0655 10/21/18 0655 Assessment and Plan AGED OR DISABLED CARER Assessment: Stable AGED OR DISABLED CARER Plan: Routine Post-Op Care Problems: (1) 36 weeks gestation of Status: Resolved (2) Pre-eclampsia affecting , antepartum Status: Resolved (3) Postcesarean section Assessment & Plan: Continue to monitor blood pressure. Remaining 130s to 140s. Patient without symptoms. Platelets improving. Minor bump in creatinine from 0.6-0.7. We'll continue to monitor patient accordingly. Encouraged patient to take a medications and not get behind in order to keep pain better controlled. We'll start patient on nifedipine 30 mg XL. VIK PIÑA DO Oct 21, 2018 09:13
[2018-10-21] MEDS: DOCUSATE CALCIUM 240 MG CAP PO SCH ×2 (09:33→21:21)
[2018-10-21] MEDS: FAMOTIDINE 20 MG TAB PO SCH ×2 (09:33→21:21)
[2018-10-21] MEDS: NIFEdipine XL 30 MG TABCR PO SCH (09:33)
[2018-10-21 09:41] VITALS: BP 139/98
[2018-10-21] MEDS ORDERED: MEASLES,MUMP,RUBELLA VAC 0.5ML SUBQ ONE (11:00)
[2018-10-21] MEDS ORDERED: DIPHTH/TETANUS/ACEL. PERTUSSIS IM ONLY ONE (11:00)
[2018-10-21] MEDS ORDERED: INFLUENZA VIRUS VAC 0.5ML SYR IM ONLY ONE (11:00)
[2018-10-21 15:13] VITALS: BP 134/81
[2018-10-21 19:30] VITALS: BP 153/99
[2018-10-21 23:25] VITALS: BP 139/92
[2018-10-22] VITALS (7 sets, daily range): BP systolic 133–141; BP diastolic 82–102
[2018-10-22] MEDS: IBUPROFEN 800 MG TAB PO SCH ×3 (02:01→18:05)
[2018-10-22] MEDS: SIMETHICONE 80 MG CHEW CHEW PRN ×2 (05:54→22:21)
--- NOTE | 2018-10-22 09:10 | OB/GYN Progress Note ---
OB Subjective Progress Notes Subjective Patient is feeling relatively well. Her pain is controlled with oral medication. She is ambulating and voiding without difficulty. She is tolerating oral. She denies any preeclampsia symptoms. She is overwhelmed, and working on pumping. Her milk has not yet come in. OB Objective Physical Exam Vital Signs Date Time Temp Pulse Resp B/P (MAP) Pulse Ox O2 Delivery O2 Flow Rate FiO2 10/22/18 06:37 138/84 (102) 10/22/18 05:57 98.5 79 16 94 Room Air 10/19/18 20:38 0.5 Intake and Output 10/22/18 06:59 Intake Total 330 ml Balance 330 ml Intake Oral 330 ml General Appearance: Alert/Awake/No Acute Distress Neurological: No Gross deficits Eyes: Normal Extraocular Movement & Vison Cardiovascular: Normal Rhythm & Peripheral Pulses, Regular Rate and Rhythm Respiratory: No Respiratory Distress Incision: Clean, Dry, Intact, Dermabond Extremities: Edema (2+ bilateral LE); No Reflexes, No Tender Calves, No Clonus Integumentary: Skin Intact without Lesions or Rash Psychological: Alert & Oriented X3, Appropriate Mood & Affect Result Diagram: 10/21/1855 10/21/18 0655 Assessment and Plan Problems: (1) Postcesarean section Assessment & Plan: POD#3 s/p PLTCD. She is doing well postoperatively. However, she is still having some labile BP despite Procardia 30XL. Will monitor her further today and see if she is ready for discharge later. (2) Pre-eclampsia affecting , antepartum Status: Resolved ANDREW MELARA MD Oct 22, 2018 09:10
[2018-10-22] MEDS ORDERED: IBUP800T37 PO (09:14)
[2018-10-22] MEDS ORDERED: OXYC-865 PO (09:14)
[2018-10-22] MEDS ORDERED: DOCU-416 PO (09:14)
[2018-10-22] MEDS: NIFEdipine XL 30 MG TABCR PO SCH (09:17)
[2018-10-22] MEDS: FAMOTIDINE 20 MG TAB PO SCH ×2 (09:17→20:45)
[2018-10-22] MEDS: DOCUSATE CALCIUM 240 MG CAP PO SCH ×2 (09:17→20:45)
[2018-10-22] MEDS ORDERED: POLYETHYLENE GLYCOL 17 GM PKT PO PRN ×2 (21:50→22:40)
[2018-10-22] MEDS ORDERED: MAGNESIUM HYDROXIDE* 30ML UDCP PO PRN (21:50)
[2018-10-23] MEDS ORDERED: IBUPROFEN 800 MG TAB PO SCH
[2018-10-23 01:04] VITALS: BP 135/78
[2018-10-23] MEDS: IBUPROFEN 800 MG TAB PO SCH ×3 (02:25→18:00)
[2018-10-23 05:15] VITALS: BP 140/86
[2018-10-23 07:25] VITALS: BP 158/98
[2018-10-23] MEDS: FAMOTIDINE 20 MG TAB PO SCH ×2 (08:25→20:53)
[2018-10-23] MEDS: DOCUSATE CALCIUM 240 MG CAP PO SCH ×2 (08:25→20:53)
[2018-10-23] MEDS: NIFEdipine XL 30 MG TABCR PO SCH (08:25)
--- NOTE | 2018-10-23 08:32 | OB/GYN Progress Note ---
OB Subjective Progress Notes Subjective Doing well. Pain controlled with oral medications. Tolerating regular diet. Ambulating. Voiding. Normal lochia. No preeclampsia symptoms. OB Objective Physical Exam Vital Signs Date Time Temp Pulse Resp B/P (MAP) Pulse Ox O2 Delivery O2 Flow Rate FiO2 10/23/18 07:25 98.1 18 158/98 (118) 94 Room Air 10/23/18 05:15 96 10/19/18 20:38 0.5 Intake and Output 10/23/18 06:59 Intake Total 120 ml Balance 120 ml Intake Oral 120 ml General Appearance: Alert/Awake/No Acute Distress Neurological: No Gross deficits Eyes: Normal Extraocular Movement & Vison Cardiovascular: Normal Rhythm & Peripheral Pulses, Regular Rate and Rhythm Respiratory: No Respiratory Distress Incision: Clean, Dry, Intact, Dermabond Extremities: Edema (2+ bilateral LE); No Reflexes, No Tender Calves, No Clonus Integumentary: Skin Intact without Lesions or Rash Psychological: Alert & Oriented X3, Appropriate Mood & Affect Result Diagram: 10/21/18 0655 10/21/18 0655 Assessment and Plan Problems: (1) Postcesarean section Assessment & Plan: POD#4 s/p PLTCD. Meeting milestones. Her BP is stable on Procardia 30 XL. Desires discharge to home today. Discussed routine expectations. Questions answered. Follow up in clinic in 1wk for BP check and 2wks for incision check. Discussed preeclampsia precautions. (2) Pre-eclampsia affecting , antepartum Status: Resolved ANDREW MELARA MD Oct 23, 2018 08:32
--- NOTE | 2018-10-23 08:32 | OB/GYN Discharge Summary ---
Discharge Summary Reason for Hosp/Final Diag: (1) Postcesarean section Hospital Course & Plan: POD#4 s/p PLTCD. Meeting milestones. Her BP is stable on Procardia 30 XL. Desires discharge to home today. Discussed routine expectations. Questions answered. Follow up in clinic in 1wk for BP check and 2wks for incision check. Discussed preeclampsia precautions. (2) Pre-eclampsia affecting , antepartum Status: Resolved Lates Vital Signs Vital Signs Date Time Temp Pulse Resp B/P (MAP) Pulse Ox O2 Delivery O2 Flow Rate FiO2 10/23/18 07:25 98.1 18 158/98 (118) 94 Room Air 10/23/18 05:15 96 10/19/18 20:38 0.5 Weight (Pounds): 174 Result Diagram: 10/21/1865410/21/18654 Condition: Improved Discharge: Home, Self Nursing Home Meds Active Scripts Oxycodone Hcl/Acetaminophen (PERCOCET 5-325 MG TABLET) 1 Each Tablet, 1 TAB PO Q4-6H PRN for pain, #30 TAB 0 Refills Prov:ANDREW MELARA MD 10/22/18 Fluticasone Prop 50 Mcg Ns (FLONASE 50 MCG NS) 16 Gm Driscoll.susp, 2 SPRAYS NS QDAY, #1 BOT 3 Refills Prov:ANDREW MELARA MD 09/27/18 Butalb/Acetaminophen/Caff 50-325-40 Mg (FIORICET 50-325-40) 1 Each Tablet, 1-2 TAB PO Q6H PRN for headache, #10 TAB 1 Refill Prov:ANDREW MELARA MD 09/27/18 Zolmitriptan (ZOMIG) 5 Mg Driscoll, 5 MG NS ONCE, #1 BOT 1 Refill 1 actuation in one nostril x 1, may repeat x 1 after 2 hours, do not exceed 10mg in 24hrs. Prov:ANDREW MELARA MD 04/30/18 Reported Medications Vits W-Ca,Fe,Fa(<1MG) ( VITAMINS) 1 Each Tablet, 1 EACH PO DAILY, TAB 10/18/18 Discontinued Reported Medications Ondansetron Hcl (ONDANSETRON HCL) 4 Mg Tablet, 1 TAB PO Q12H PRN for MIGRAINE, TAB 01/22/18 Zolmitriptan (ZOLMITRIPTAN) 2.5 Mg Tablet, 1 TAB PO PRN PRN for MIGRAINE 01/22/18 Follow up Referrals: [facility] - In One Week @ [facility] [place] with ANDREW MELARA MD Discharge Diet: As Tolerates Discharge Activity: No Heavy Lifting > 10lb, Pelvic Rest ANDREW MELARA MD Oct 23, 2018 08:32
[2018-10-23 12:23] VITALS: BP 146/107
[2018-10-23] MEDS ORDERED: NIFEdipine XL 30 MG TABCR PO ONE (12:40)
[2018-10-23 16:30] VITALS: BP 150/94
[2018-10-23] MEDS ORDERED: NIFEdipine XL 30 MG TABCR PO SCH ×2 (18:25)
[2018-10-23 19:41] VITALS: BP 187/97
[2018-10-24] MEDS ORDERED: IBUPROFEN 800 MG TAB PO SCH (02:00)
== END 2018-10-23 21:00 | disposition home or self-care (01) | DRG 788 ==
LOC: OB 11:20
PROVIDERS: ADMIT Student in an Organized Health Care Education/Training Program; ATTEND Student in an Organized Health Care Education/Training Program
PROC: 3E033VJ Introduction of Other Hormone into Peripheral Vein, Percutaneous Approach (ICD-10-PCS; 2018-10-18)
PROC: 10907ZC Drainage of Amniotic Fluid, Therapeutic from Products of Conception, Via Natural or Artificial Opening (ICD-10-PCS; 2018-10-19)
PROC: 4A1H74Z Monitoring of Products of Conception, Cardiac Electrical Activity, Via Natural or Artificial Opening (ICD-10-PCS; 2018-10-19)
PROC: 10H073Z Insertion of Monitoring Electrode into Products of Conception, Via Natural or Artificial Opening (ICD-10-PCS; 2018-10-19)
PROC: 10D00Z1 Extraction of Products of Conception, Low, Open Approach (ICD-10-PCS; principal; 2018-10-19 09:41)
DX: O14.04 Mild to moderate pre-eclampsia, complicating childbirth (principal); O32.4XX0 Maternal care for high head at term, not applicable or unspecified; O69.2XX0 Labor and delivery complicated by other cord entanglement, with compression, not applicable or unspecified; O62.1 Secondary uterine inertia; O76 Abnormality in fetal heart rate and rhythm complicating labor and delivery; O66.5 Attempted application of vacuum extractor and forceps; Z3A.36 36 weeks gestation of pregnancy; Z37.0 Single live birth
CPT/HCPCS: 36415; 82040; 82247; 82310; 82374; 82435; 82565; 82947; 84075; 84132; 84155; 84295; 84450; 84460; 84520; 85025; 85027; 86850; 86900; 86901; C1726; J1885; J2270; J2405; J2590; J3010; J7120

== ENCOUNTER → 2018-10-18 | Outpatient (CLI) | payer BC ==
[~2018-10-18] MED LIST changes: +OXYC-865 PO; +PREN-127 PO
--- NOTE | 2018-10-18 13:33 | RADIOLOGY IMAGING REPORT ---
FACILITY: [facility] - [place] PATIENT NAME: Darcie Pizarro : 1990 MR: [id number] V: [id number] EXAM DATE: ORDERING PHYSICIAN: ANDREW MELARA TECHNOLOGIST: Location: [facility] Patient: Darcie Pizarro : 1990 Visit/Account:[id number] Date of Sevice: 10/18/2018 Obstetrical ultrasound for biophysical profile, greater than 14 weeks. HISTORY: Abnormal nonstress test. COMPARISON: Obstetrical ultrasound 10/14/2018. position-cephalic. Placental position-fundal. heart rate-149 bpm beats per minute. STEPHEN-11.72 cm. MVP-5.3 cm. Breathing Movement -2/2. Gross Body Movement -0/2. Tone -2/2. Qualitative Amniotic Fluid Volume -2/2. Total Biophysical Profile -8/8. IMPRESSION: The total biophysical profile measures 6 out of a possible 8. Report Dictated By: Chris Browning MD at 10/18/2018 1:25 PM Report E-Signed By: Chris Browning MD at 10/18/2018 1:29 PM WSN:[email or web address]
== END ==
LOC: RAD 08:53
PROVIDERS: ATTEND Obstetrics & Gynecology
DX: O76 Abnormality in fetal heart rate and rhythm complicating labor and delivery (principal)